=== PATIENT | female | born 1950 | race Caucasian/White ===

== ENCOUNTER 2019-05-09 07:59 | Day surgery (SDC) | payer MEDICARE, OTHER ==
[~2019-05-09 07:59] MED LIST: CHONDR SU A NA/HYALUR INTRAOC KIT (SURGICARE) ONE; EPINEPHRINE INJ/PF 1 MG/1 ML AMPULE ONE; KETOROLAC TROMETHAMINE 0.45% 4 DROP/0.4 ML DROPERETTE OS PRN; LIDOCAINE 1% INJ-PF (10 MG/ML) 30 ML SDV ONE; TETRACAINE HCL 0.5% OPH SOLN 0.6 ML DROPERETTE OS PRN
[2019-05-09] MEDS: TETRACAINE HCL 0.5% OPH SOLN 4 ML OS PRN ×3 (08:36→09:10)
[2019-05-09] MEDS: TROPICAMIDE 1% OPH SOLN 3 ML OS PRN ×3 (08:37→09:05)
[2019-05-09] MEDS: CYCLOPENTOLATE 0.2%/PHENYLEPHRINE 1% OPH SOLN 2 ML OS PRN ×3 (08:37→09:05)
[2019-05-09] MEDS: BESIFLOXACIN HCL 0.6% OPH SUSP 5 ML BOTTLE OS PRN ×4 (08:37→09:35)
[2019-05-09] MEDS ORDERED: FENTANYL CITRATE INJ/PF 100 MCG/2 ML AMPUL ONE (09:00)
[2019-05-09] MEDS ORDERED: MIDAZOLAM 2 MG/2 ML INJ ONE (09:00)
[2019-05-09] MEDS: DORZOLAMIDE HCL 2%/TIMOLOL MALEAT 0.5% OPH SOLN 10 ML OS PRN ×2 (09:35)
[2019-05-09] MEDS: TOBRAMYCIN SULFATE/DEXAMETH OPH OINTMENT 3.5 GM ONE ×2 (09:35)
== END 2019-05-09 10:08 | disposition home or self-care (01) ==
LOC: SC 07:59
PROVIDERS: ATTEND Ophthalmology
DX: H25.11 Age-related nuclear cataract, right eye (principal); Z98.41 Cataract extraction status, right eye; E78.00 Pure hypercholesterolemia, unspecified
CPT/HCPCS: 00142; 66984; V2632; J2250; J3490 ×4; A9270; J0171; J3010; 142